=== PATIENT | male | born 1970 | race Caucasian/White ===

== ENCOUNTER 2022-03-20 14:03 | Emergency (ER) | payer OTHER ==
[~2022-03-20] VITALS: Ht 172.7 cm; Wt 79.4 kg
--- NOTE | 2022-03-20 14:21 | NUR ---
BIB [facility] BECAUSE OF UNSTEADY GAIT DUE TO ALCOHOL INTOXICATION,TO ER 15,FALL PRECAUTION IMPLEMENTED.
--- NOTE | 2022-03-20 14:23 | NUR ---
SECURITY CALLED FOR WANDING AND REMOVAL OF CONTRABAND.
[2022-03-20] MEDS ORDERED: ONDANSETRON 4 MG TAB.RAPDIS SL ONE (14:30)
[2022-03-20] MEDS ORDERED: ONDANSETRON 4 MG TAB.RAPDIS ONE (14:42)
[2022-03-20] MEDS ORDERED: IBUPROFEN 400 MG TABLET ONE (17:35)
--- NOTE | 2022-03-20 17:38 | NUR ---
VERBAL OEDER FROM DR GEE 800MG IBUPROFEN PO FOR HEADACHE.
--- NOTE | 2022-03-20 17:38 | NUR ---
Patient discharged to home in stable condition. Written and verbal after care instructions given. Patient verbalizes understanding of instruction.
[2022-03-20 17:39] VITALS: BP 133/74
[2022-03-20] MEDS ORDERED: IBUPROFEN 400 MG TABLET PO ONE (18:00)
== END 2022-03-20 17:39 | disposition home or self-care (01) ==
LOC: ER 14:09
DX: F10.129 Alcohol abuse with intoxication, unspecified (principal); Z60.2 Problems related to living alone; Y90.9 Presence of alcohol in blood, level not specified
CPT/HCPCS: 99283; Q0162